=== PATIENT | male | born 1950 | race Two or more races ===

== ENCOUNTER 2020-12-26 13:26 | Emergency (ER) | payer MEDICARE ==
[~2020-12-26] VITALS: Ht 177.8 cm; Wt 96.6 kg
--- NOTE | 2020-12-26 13:48 | NUR ---
ED Nurse Note: Pt from home and sent by Dr Phipps due to irregular heart beat. Pt denies CP or dizziness. Reports mild SOB. Patient is AAO x4, ambulatory.
[2020-12-26] MEDS ORDERED: dilTIAZem HCl 25mg/5ml Inj IVP ONE ×2 (14:00→14:45)
[2020-12-26 14:14] VITALS: BP 119/77
--- NOTE | 2020-12-26 14:15 | NUR ---
ED Nurse Note: Collected blood then sent to lab.
--- NOTE | 2020-12-26 14:16 | NUR ---
ED Nurse Note:blood sent to labs, iv meds given, no c/o pain
[2020-12-26 14:36] LABS: BASOPHILS % (AUTO) 1.1 % (0.0-2.0); EOSINOPHILS % (AUTO) 1.1 % (0.0-3.0); HEMATOCRIT 45.3 % (42.0-52.0); LYMPHOCYTES % (AUTO) 22.3 % (20.0-45.0); MEAN CORPUSCULAR VOLUME 87 FL (80-99); MONOCYTES % (AUTO) 8.8 % (1.0-10.0); NEUTROPHILS % (AUTO) 66.7 % (45.0-75.0); PLATELET COUNT 223 K/UL (150-450); RED BLOOD COUNT 5.24 M/UL (4.70-6.10); RED CELL DISTRIBUTION WIDTH 12.5 % (11.6-14.8); WHITE BLOOD COUNT 5.5 K/UL (4.8-10.8)
--- NOTE | 2020-12-26 14:39 | Emergency Room Report ---
History of Present Illness General Chief Complaint: Palpitations Source: Patient, PMD - Dr. Phipps Present Illness HPI Patient is a 70-year-old male past medical history of diabetes who presents to the ER complaining of 2 to 3 months of shortness of breath, fatigue and palpitations. Patient states that he went to see his primary care doctor and was found to have new onset atrial fibrillation with rapid ventricular response. Patient was sent to the emergency room for further treatment and evaluation. Patient states he is not on any blood thinners. He denies any lower extremity pain or edema. He denies any fever or chills. He denies any abdominal pain edward sea or vomiting. 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: No Patient History Reviewed Nursing Documentation: PMH: Agreed; PSxH: Agreed Nursing Documentation-PMH Hx Diabetes: Yes Review of Systems All Other Systems: negative except mentioned in HPI Physical Exam Vital Signs Date Time Temp Pulse Resp B/P (MAP) Pulse Ox O2 Delivery O2 Flow Rate FiO2 12/26/20 13:38 97.9 108 16 177/126 (143) 95 Room Air Sp02 EP Interpretation: reviewed, normal General Appearance: no apparent distress, alert, GCS 15, non-toxic Head: normocephalic, atraumatic Eyes: bilateral eye normal inspection, bilateral eye PERRL ENT: hearing grossly normal, normal pharynx, no angioedema, normal voice Neck: full range of motion, supple/symm/no masses Respiratory: chest non-tender, no respiratory distress, speaking full sentences Cardiovascular #1: tachycardia, irregularly irregular Gastrointestinal: non tender, soft, no guarding, no rebound, overweight Rectal: deferred Genitourinary: no CVA tenderness Musculoskeletal: normal range of motion, no calf tenderness Neurologic: international account manager III-XII nml as tested, oriented x3 Psychiatric: no suicidal/homicidal ideation Skin: no rash Lymphatic: no adenopathy Procedures Critical Care Time Critical Care Time Total critical care time: Approximately [] minutes. Due to a high probability of clinically significant, life threatening deterioration, the patient required my highest level of preparedness to intervene emergently and I personally spent this critical care time directly and personally managing the patient. This critical care time included obtaining a history; examining the patient; pulse oximetry; ordering and review of studies; arranging urgent treatment with development of a management plan; evaluation of patient's response to treatment; frequent reassessment; and, discussions with other providers.This critical care time was performed to assess and manage the high probability of imminent, life- threatening deterioration that could result in multi-organ failure. It was exclusive of separately billable procedures and treating other patients and teaching time. Please see MDM section and the rest of the note for further information on patient assessment and treatment. Total critical care time: Approximately 35 minutes. Due to a high probability of clinically significant, life threatening deterioration, the patient required my highest level of preparedness to intervene emergently and I personally spent this critical care time directly and personally managing the patient. This critical care time included obtaining a history; examining the patient; pulse oximetry; ordering and review of studies; arranging urgent treatment with de velopment of a management plan; evaluation of patient's response to treatment; frequent reassessment; and, discussions with other providers.This critical care time was performed to assess and manage the high probability of imminent, life- threatening deterioration that could result in multi-organ failure. It was exclusive of separately billable procedures and treating other patients and teaching time. Please see MDM section and the rest of the note for further information on patient assessment and treatment. Medical Decision Making Diagnostic Impression: Primary Impression: Atrial fibrillation with RVR Additional Impression: Palpitations ER Course Patient given Cardizem twice for rate control. Patient also given aspirin. Patient was to be started on anticoagulation. Patient not candidate for cardioversion due to the length of time of his symptoms. Patient was pending a CTA chest to rule out pulmonary embolism. Patient states that he was told to only come here and get medications and go home. I have been in contact with the patient's primary care physician who sent him in he also wants the patient started on heparin to be admitted. I relayed the information to the patient as well and he became very aggressive and abrasive stating that he is leaving and does not want to be here any longer. The patient is of adult age and has sound mind with no evidence of altered mental status suggesting metabolic or infections etiologies. I explained in layman's terms the risk of leaving against medical advise including and significant comorbidity. The patient was given reasonable options. This was explained in front of them and the bedside nurse GA Alfred. The AMA for was signed and witnessed by a nurse and the patient. EKG Diagnostic Results Troponin ordered: Yes When was troponin ordered?: Dec 26, 2020 EKG Time: 13:54 EP Interpretation: America Reyes MD Rate: tachycardiac - 138 bpm Rhythm: other - Atrial fibrillation with rapid ventricular response ST Segments: no acute changes ASA given to the pt in ED: Yes Rhythm Strip Diag. Results Rhythm Strip Time: 14:42 EP Interpretation: yes - America Reyes MD Rate: 118 bpm Rhythm: no PVC's, no ectopy, other - atrial fibrillation with rvr Chest X-Ray Diagnostic Results Chest X-Ray Diagnostic Results : Chest X-Ray Ordered: Yes # of Views/Limited/Complete: 1 View Indication: Shortness of Breath EP Interpretation: Yes Interpretation: no effusion, no pneumothorax, no acute cardiopulmonary disease, other - Cardiomegaly Impression: No acute disease Electronically Signed by: America Reyes MD Last Vital Signs Date Time Temp Pulse Resp B/P (MAP) Pulse Ox O2 Delivery O2 Flow Rate FiO2 12/26/20 14:14 97.9 113 16 119/77 98 Room Air Disposition: AGAINST MEDICAL ADVICE Condition: Stable Referrals: NON PHYSICIAN (PCP) Additional Instructions: Please note that this report is being documented using [employer] technology. This can lead to erroneous entry secondary to incorrect interpretation by the dictating instrument. America Reyes M.D. Dec 26, 2020 14:39
[2020-12-26 14:44] LABS: INR 1.1 (0.9-1.1)
[2020-12-26] MEDS ORDERED: Aspirin Baby 81mg ORAL ONE (14:45)
[2020-12-26 15:01] LABS: ALBUMIN/GLOBULIN RATIO 1.3 (1.0-2.7); BILIRUBIN,TOTAL 0.6 MG/DL (0.2-1.0); CALCIUM 9.1 MG/DL (8.5-10.1); CREATININE 1.2 MG/DL (0.55-1.30); POTASSIUM 4.3 MMOL/L (3.5-5.1)
[2020-12-26 15:10] VITALS: BP 142/98
[2020-12-26 15:15] VITALS: BP 142/98
[2020-12-26] MEDS ORDERED: Omnipaque 350 100ml vial INJ PRN (15:15)
--- NOTE | 2020-12-26 15:15 | NUR ---
AMA:pt. signed MD LILLIANA is aware, pt. is A/Ox4 ambulatory with steady gait, IV was removed, VSS. SEE AMA FORM.
--- NOTE | 2020-12-26 15:15 | Diagnostic Imaging Report ---
Indication: Cough Technique: One view of the chest Comparison: none Findings: Heart is mildly enlarged. There is equivocal mild interstitial congestion. Pleural spaces are clear. Impression: Cardiomegaly. Equivocal mild interstitial congestion
== END 2020-12-26 15:15 | disposition left against medical advice (07) ==
LOC: EMR 14:30 → CANBEDREQ 15:24
DX: I48.20 Chronic atrial fibrillation, unspecified (principal); R00.2 Palpitations; E11.9 Type 2 diabetes mellitus without complications; I51.7 Cardiomegaly
CPT/HCPCS: 36415; 71045; 80053; 83735; 83880; 84439; 84443; 84484; 85025; 85379; 85610; 85730; 93005; 96361; 96374; 96376; 99284; J7030